=== PATIENT | male | born 1995 | race Caucasian/White ===

== ENCOUNTER 2017-01-08 20:04 | Emergency (ER) | payer SELFPAY | END 2017-01-08 21:42 | disposition home or self-care (01) | LOC: D.ER 20:04 | DX: M79.672 Pain in left foot (principal); M79.671 Pain in right foot; F17.200 Nicotine dependence, unspecified, uncomplicated ==

== ENCOUNTER 2017-01-10 01:01 | Emergency (ER) | payer SELFPAY ==
[2017-01-10 02:02] LABS: HEMATOCRIT 42.1 % (42.0-54.0); HEMOGLOBIN 14.4 g/dL (13.5-17.5); LYMPHOCYTES 35.5 % (15-50); MCH 29.9 pg (26.0-34.0); MCHC 34.2 g/dL (31.0-37.0); MCV 87.5 fL (80.0-100.0); MEAN PLATELET VOLUME 8.8 fL (7.4-10.4); NEUTROPHILS 58.1 % (40-80); PLATELET COUNT 225 10x3/uL (130-400); RBC 4.81 10x6/uL (4.20-6.10); WBC 8.2 10x3/uL (4.8-10.8)
[2017-01-10 02:35] LABS: CALC OSMOLALITY 286 mosm/kg (275-300); CALCIUM 8.8 mg/dL (8.5-10.1); CARBON DIOXIDE 29.7 mmol/L (21.0-32.0); CHLORIDE - SERUM 104 mmol/L (98-107); CKMB 2.7 U/L (0.0-3.6); CREATINE KINASE 232 UL (21-232); GLUCOSE 91 mg/dL (74-106); POTASSIUM - SERUM 3.6 mmol/L (3.5-5.1); SODIUM 143 mmol/L (136-145); UREA NITROGEN 18 mg/dL (7-18); eGFR NON AFRICAN AMERICAN > 90 mL/min (90-120)
[2017-01-10 02:36] LABS: TROPONIN-I < 0.017 ng/mL (0.000-0.060)
== END 2017-01-10 02:54 | disposition home or self-care (01) ==
LOC: D.ER 01:01
PROVIDERS: Emergency Medicine
DX: R09.1 Pleurisy (principal); F17.200 Nicotine dependence, unspecified, uncomplicated; R00.1 Bradycardia, unspecified

== ENCOUNTER 2017-03-20 08:55 | Emergency (ER) | payer MEDICAID | END 2017-03-20 11:02 | disposition home or self-care (01) | LOC: D.ER 08:55 | DX: S70.02XA Contusion of left hip, initial encounter (principal); W19.XXXA Unspecified fall, initial encounter; Y93.51 Activity, roller skating (inline) and skateboarding; Y92.89 Other specified places as the place of occurrence of the external cause; F17.200 Nicotine dependence, unspecified, uncomplicated ==

== ENCOUNTER 2017-11-19 17:05 | Emergency (ER) | payer MEDICAID | END 2017-11-19 17:08 | disposition left against medical advice (07) | LOC: D.ER 17:05 | DX: K08.89 Other specified disorders of teeth and supporting structures (principal); K02.9 Dental caries, unspecified ==

== ENCOUNTER 2017-11-19 17:17 | Emergency (ER) | payer MEDICAID | END 2017-11-19 18:02 | disposition home or self-care (01) | LOC: D.ER 17:17 | DX: Z02.9 Encounter for administrative examinations, unspecified (principal) ==

== ENCOUNTER 2018-05-04 14:46 | Emergency (ER) | payer MEDICAID ==
[~2018-05-04] VITALS: Ht 170.2 cm; Wt 68.2 kg
[2018-05-04 15:10] VITALS: Ht 170.2 cm; Wt 68.2 kg
[2018-05-04] MEDS ORDERED: ROBAXIN500 MG PO (19:57)
[2018-05-04] MEDS ORDERED: ANAPROX DS550 MG PO (19:57)
[2018-05-04 20:10] VITALS: BP 121/74
== END 2018-05-04 20:10 | disposition home or self-care (01) ==
LOC: D.ER 14:46
DX: M54.12 Radiculopathy, cervical region (principal); M62.838 Other muscle spasm; F17.200 Nicotine dependence, unspecified, uncomplicated

== ENCOUNTER 2018-06-17 17:13 | Emergency (ER) | payer MEDICAID ==
[~2018-06-17] VITALS: Ht 170.2 cm; Wt 65.9 kg
[~2018-06-17 17:13] MED LIST: ANAPROX DS550 MG PO; ROBAXIN500 MG PO
[2018-06-17 17:33] VITALS: Ht 170.2 cm; Wt 65.9 kg
[2018-06-17] MEDS ORDERED: MUPIROCIN22 GM TOPICAL (18:39)
[2018-06-17] MEDS ORDERED: BACTRIM 400-801 TAB PO (18:39)
[2018-06-17 19:01] VITALS: BP 129/72
== END 2018-06-17 19:02 | disposition home or self-care (01) ==
LOC: D.ER 17:13
DX: L02.211 Cutaneous abscess of abdominal wall (principal); F17.200 Nicotine dependence, unspecified, uncomplicated

== ENCOUNTER 2018-12-15 16:12 | Emergency (ER) | payer MEDICAID ==
[~2018-12-15] VITALS: Ht 170.2 cm; Wt 67.3 kg
[~2018-12-15 16:12] MED LIST changes: +BACTRIM 400-801 TAB PO; +MUPIROCIN22 GM TOPICAL
[2018-12-15 16:14] VITALS: Ht 170.2 cm; Wt 67.3 kg
[2018-12-15 17:15] LABS: UDS - AMPHET NEGATIVE QUAL (NEGATIVE); UDS - BARB NEGATIVE QUAL (NEGATIVE); UDS - BENZO NEGATIVE QUAL (NEGATIVE); UDS - COCAINE NEGATIVE QUAL (NEGATIVE); UDS - OPIATE NEGATIVE QUAL (NEGATIVE); UDS - PCP NEGATIVE QUAL (NEGATIVE); UDS - THC POSITIVE QUAL (NEGATIVE)
[2018-12-15 17:22] LABS: BASOPHILS 0.2 % (0-2); EOSINOPHILS 0.5 % (0-7); HEMATOCRIT 45.5 % (42.0-54.0); HEMOGLOBIN 15.8 g/dL (13.5-17.5); IMMATURE GRANULOCYTES 0.2 % (0-5); LYMPHOCYTES 28.5 % (15-50); MCH 30.6 pg (26.0-34.0); MCHC 34.7 g/dL (31.0-37.0); MEAN PLATELET VOLUME 9.2 fL (7.4-10.4); MONOCYTES 7.9 % (2-11); NEUTROPHILS 62.7 % (40-80); PLATELET COUNT 251 10x3/uL (130-400); RBC 5.17 10x6/uL (4.20-6.10); RDW 12.9 % (11.5-14.5); WBC 6.4 10x3/uL (4.8-10.8)
[2018-12-15 17:42] LABS: ALBUMIN 4.4 g/dL (3.4-5.0); ALKALINE PHOSPHATASE 74 U/L (46-116); ALT (SGPT) 22 U/L (10-68); BILIRUBIN - TOTAL 0.64 mg/dL (0.2-1.3); CALC OSMOLALITY 281 mosm/kg (275-300); CALCIUM 8.9 mg/dL (8.5-10.1); CARBON DIOXIDE 28.1 mmol/L (21.0-32.0); CHLORIDE - SERUM 103 mmol/L (98-107); CREATININE - SERUM 0.9 mg/dL (0.6-1.3); GLUCOSE 100 mg/dL (74-106); POTASSIUM - SERUM 3.4 mmol/L (3.5-5.1); PROTEIN - SERUM 7.8 g/dL (6.4-8.2); SODIUM 141 mmol/L (136-145); UREA NITROGEN 14 mg/dL (7-18); eGFR NON AFRICAN AMERICAN > 90 mL/min (90-120)
[2018-12-15 17:50] LABS: THYROID STIMULATING HORMONE 0.29 uIU/mL (0.36-3.74)
[2018-12-15 18:58] LABS: T4 THYROXIN - FREE 1.29 ng/dL (0.76-1.46); T4 THYROXINE 10.6 ug/dL (4.7-13.3)
[2018-12-15] MEDS ORDERED: VISTARIL50 MG PO (20:43)
[2018-12-15 22:08] VITALS: BP 135/90
== END 2018-12-15 22:08 | disposition home or self-care (01) ==
LOC: D.ER 16:12
PROVIDERS: Emergency Medicine
DX: F41.9 Anxiety disorder, unspecified (principal)

== ENCOUNTER 2018-12-18 09:08 | Emergency (ER) | payer MEDICAID ==
[~2018-12-18] VITALS: Ht 170.2 cm; Wt 66.8 kg
[~2018-12-18 09:08] MED LIST changes: +VISTARIL50 MG PO
[2018-12-18 09:15] VITALS: Ht 170.2 cm; Wt 66.8 kg
[2018-12-18] MEDS ORDERED: BANOPHEN25 MG PO (09:24)
[2018-12-18] MEDS ORDERED: ATIVAN2 MG (09:25)
[2018-12-18 10:02] LABS: BASOPHILS 0.1 % (0-2); EOSINOPHILS 0.7 % (0-7); HEMOGLOBIN 16.1 g/dL (13.5-17.5); IMMATURE GRANULOCYTES 0.1 % (0-5); LYMPHOCYTES 15.5 % (15-50); MCH 29.9 pg (26.0-34.0); MCHC 34.3 g/dL (31.0-37.0); MCV 87.4 fL (80.0-100.0); MEAN PLATELET VOLUME 9.4 fL (7.4-10.4); MONOCYTES 5.5 % (2-11); NEUTROPHILS 78.1 % (40-80); PLATELET COUNT 249 10x3/uL (130-400); RBC 5.38 10x6/uL (4.20-6.10); RDW 12.9 % (11.5-14.5); WBC 9.6 10x3/uL (4.8-10.8)
[2018-12-18 10:24] LABS: ALBUMIN 4.4 g/dL (3.4-5.0); ALKALINE PHOSPHATASE 72 U/L (46-116); ALT (SGPT) 23 U/L (10-68); BILIRUBIN - TOTAL 0.85 mg/dL (0.2-1.3); CALC OSMOLALITY 281 mosm/kg (275-300); CALCIUM 9.2 mg/dL (8.5-10.1); CARBON DIOXIDE 27.7 mmol/L (21.0-32.0); CHLORIDE - SERUM 103 mmol/L (98-107); CREATININE - SERUM 0.9 mg/dL (0.6-1.3); GLUCOSE 137 mg/dL (74-106); POTASSIUM - SERUM 3.3 mmol/L (3.5-5.1); PROTEIN - SERUM 7.7 g/dL (6.4-8.2); SODIUM 140 mmol/L (136-145); UREA NITROGEN 16 mg/dL (7-18); eGFR NON AFRICAN AMERICAN > 90 mL/min (90-120)
[2018-12-18 10:29] LABS: UDS - AMPHET NEGATIVE QUAL (NEGATIVE); UDS - BARB NEGATIVE QUAL (NEGATIVE); UDS - BENZO NEGATIVE QUAL (NEGATIVE); UDS - COCAINE NEGATIVE QUAL (NEGATIVE); UDS - OPIATE NEGATIVE QUAL (NEGATIVE); UDS - PCP NEGATIVE QUAL (NEGATIVE); UDS - THC POSITIVE QUAL (NEGATIVE)
[2018-12-18 10:54] LABS: APPEARANCE HAZY (CLEAR); COLOR YELLOW (YELLOW)
[2018-12-18 10:55] LABS: GLUCOSE NEGATIVE (NEGATIVE); NITRITE NEGATIVE (NEGATIVE); PROTEIN NEGATIVE (NEGATIVE)
[2018-12-18 10:56] LABS: BACTERIA FEW /hpf (NONE SEEN); BILIRUBIN NEGATIVE (NEGATIVE); CALCIUM OXALATE CRYSTALS 0-5 /hpf (NONE SEEN); EPITHELIAL CELLS 0-5 /hpf (0-5); KETONE MODERATE mg/dL (NEGATIVE); MUCUS >1+ /lpf (NONE SEEN); RED CELLS - URINE 0-5 /hpf (0-5); UROBILINOGEN NORMAL (NORMAL); WHITE CELLS - URINE 0-5 /hpf (0-5)
[2018-12-19 02:03] VITALS: BP 125/86
== END 2018-12-19 02:03 | disposition home or self-care (01) ==
LOC: D.ER 09:08
PROVIDERS: Family Medicine
DX: F22 Delusional disorders (principal); E87.6 Hypokalemia; F29 Unspecified psychosis not due to a substance or known physiological condition